=== PATIENT | male | born 1990 | race African-American/Black ===

== ENCOUNTER 2022-10-02 04:28 | Day surgery (SDC) | payer OTHER ==
[2022-09-28 15:38] VITALS: BMI 24.0
[2022-10-02] MEDS ORDERED: BACITRACIN ZINC 15 GM TUBE TOPICAL OINTMENT ONE (11:27)
[2022-10-02] MEDS ORDERED: LIDOCAINE HCL 1%, 10 MG/ML (20ML VIAL) ONE (11:27)
[2022-10-02] MEDS ORDERED: BUPIVACAINE HCL/PF 0.5% (5MG/ML) 10 ML VIAL ONE (11:28)
[2022-10-02] MEDS ORDERED: PROPOFOL 20 ML ONE (12:15)
[2022-10-02] MEDS ORDERED: MIDAZOLAM HCL 2 MG/2 ML SINGLE DOSE VIAL ONE (12:15)
[2022-10-02] MEDS ORDERED: DEXAMETHASONE SOD PHOSPHATE 4 MG/1 ML VIAL ONE (12:30)
[2022-10-02] MEDS ORDERED: ceFAZolin SODIUM 1 GM VIAL ONE (12:30)
[2022-10-02] MEDS ORDERED: ONDANSETRON 4 MG/2 ML VIAL ONE (12:30)
[2022-10-02] MEDS ORDERED: BUPIVACAINE HCL/PF 0.5% (5 MG/ML) 30 ML VIAL IJ ONE ×2 (12:31→12:35)
[2022-10-02] MEDS ORDERED: ceFAZolin SODIUM 1 GM VIAL IVPB ONE (12:31)
[2022-10-02] MEDS ORDERED: LIDOCAINE 1% P/F 10 MG/ML VIAL INF ONE ×2 (12:31→12:35)
[2022-10-02] MEDS ORDERED: ONDANSETRON 4 MG/2 ML VIAL IVPUSH PRN (13:17)
[2022-10-02] MEDS ORDERED: oxyCODONE HCL 5 MG TABLET PO PRN (13:17)
[2022-10-02] MEDS ORDERED: LACTATED RINGERS SOLUTION 1,000 ML IV SCH (13:30)
[2022-10-02 14:18] VITALS: RESP 18
[2022-10-02 14:46] VITALS: BP 153/78; PULSE 62; TEMP 97.3
== END 2022-10-02 15:11 | disposition home or self-care (01) ==
LOC: JASU-SURG 04:28
PROVIDERS: ATTEND Urology
PROC: 0VTTXZZ Resection of Prepuce, External Approach (ICD-10-PCS; principal; 2022-10-02 12:00)
DX: N47.1 Phimosis (principal)
CPT/HCPCS: 88304-TC; 94760

== ENCOUNTER 2024-01-19 18:07 | Emergency (ER) | payer OTHER ==
[2024-01-19 18:26] VITALS: PULSE 94; BMI 25.7
[2024-01-19 19:03] VITALS: BP 132/88; RESP 18; TEMP 98.5
== END 2024-01-19 20:03 | disposition home or self-care (01) ==
LOC: JER 18:07
DX: R05.1 Acute cough (principal); Z20.822 Contact with and (suspected) exposure to COVID-19
CPT/HCPCS: 0241U-QW; 99283-25

== ENCOUNTER 2024-01-31 06:37 | Inpatient (IN) | payer OTHER ==
[2024-01-31 07:01] VITALS: BMI 25.7
[2024-01-31] MEDS: ALBUTEROL SO4 2.5/IPRATROPIUM 0.5 INH SOL 3 ML VIAL.NEB. NEB SCH ×2 (07:01→07:35)
[2024-01-31] MEDS: SODIUM CHLORIDE 0.9% 500 ML INFUS.BAG IV ONE (07:34)
[2024-01-31] MEDS: ACETAMINOPHEN 1000 MG/100 ML BAG IVPB ONE (07:34)
[2024-01-31] MEDS ORDERED: ACETAMINOPHEN INJECTION 100 ML ONE (07:36)
[2024-01-31] MEDS ORDERED: ALBUTEROL SO4 2.5/IPRATROPIUM 0.5 INH SOL 3 ML VIAL.NEB. NEB ONE (07:36)
[2024-01-31 07:49] LABS: INR 1.67 (0.83-1.09); PROTHROMBIN TIME (PATIENT) 18.6 SEC (9.7-13.0)
[2024-01-31 07:50] LABS: BASO % 0.4 % (0-2.0); EOS % 0.8 % (0-4.5); HEMATOCRIT 34.7 % (35.4-49); LYMPH % 32.3 % (8-40); MCH 26.9 pg (25.7-33.7); MCHC 31.8 g/dl (32.0-35.9); MEAN CELL VOLUME 84.6 fl (80-96); MONO % 8.2 % (3.8-10.2); NEUT % 58.3 % (42.8-82.8); PLATELET COUNT 87 10^3/uL (134-434); RDW 13.9 % (11.9-15.9); WHITE BLOOD COUNT 7.6 K/mm3 (4.0-10.0)
[2024-01-31 07:52] LABS: ACTIVATED PTT 30.7 SECONDS (25.2-36.5)
[2024-01-31 07:59] LABS: CHLORIDE 106 mmol/L (98-107); POTASSIUM 3.8 mmol/L (3.5-5.1); SODIUM 136 mmol/L (136-145)
[2024-01-31 08:00] LABS: CALCIUM 8.5 mg/dL (8.5-10.1)
[2024-01-31 08:01] LABS: ALBUMIN 3.7 g/dl (3.4-5.0); ANION GAP 6 mmol/L (4-13); BLOOD UREA NITROGEN 8.3 mg/dL (7-18); CO2 24 mmol/L (21-32); GLUCOSE,RANDOM 104 mg/dL (74-106); MAGNESIUM 2.1 mg/dL (1.8-2.4)
[2024-01-31 08:04] LABS: CREATININE 0.9 mg/dL (0.55-1.3); SGOT/AST 31 U/L (15-37); SGPT/ALT 23 U/L (13-61)
[2024-01-31 08:05] LABS: BILIRUBIN,TOTAL 1.1 mg/dL (0.2-1)
[2024-01-31 08:06] LABS: TOT PROT 7.4 g/dl (6.4-8.2)
[2024-01-31 08:25] LABS: VENOUS BASE EXCESS -4.2 mmol/L (-2-2); VENOUS O2 SATURATION 97.2 % (70-80); VENOUS PCO2 35.3 mmHg (38-52); VENOUS PH 7.378 (7.310-7.410)
[2024-01-31] MEDS ORDERED: CEFTRIAXONE 1 G/50 ML PREMIX 50 ML IVPB ONE (08:53)
[2024-01-31] MEDS ORDERED: AZITHROMYCIN IVPB 500 MG/250 ML BAG IVPB ONE (08:53)
[2024-01-31] MEDS: AZITHROMYCIN IVPB 500 MG in DEXTROSE 5%-WATER - 250 ML IVPB ONE (08:58)
[2024-01-31 08:59] LABS: ALK PHOS > 2330 U/L (45-117)
[2024-01-31 10:36] LABS: BILIRUBIN,DIRECT 0.3 mg/dL (0.0-0.2)
[2024-01-31 10:37] LABS: PHOSPHOROUS 2.5 mg/dL (2.5-4.9)
[2024-01-31 11:19] LABS: PH,URINE 6.5 (5.0-8.0); URINE APPEARANCE CLEAR; URINE BILIRUBIN NEGATIVE (NEGATIVE); URINE COLOR DK YELLOW; URINE GLUCOSE (UA) NEGATIVE (NEGATIVE); URINE KETONE 1+ (NEGATIVE); URINE LEUK ESTERASE NEGATIVE (NEGATIVE); URINE NITRITE NEGATIVE (NEGATIVE); URINE PROTEIN TRACE (NEGATIVE); URINE UROBILINOGEN 4.0 E.U/dl mg/dL (0.2-1.0)
[2024-01-31 15:19] LABS: GAMMA GLUTAMYL TRANSPEPTIDASE 98 U/L (5-85)
[2024-01-31] MEDS ORDERED: ACETAMINOPHEN 325 MG TABLET (FP) PO PRN (15:19)
[2024-01-31 16:15] VITALS: RESP 18
[2024-01-31] MEDS: ACETAMINOPHEN 1000 MG/100 ML BAG IVPB PRN (22:54)
[2024-01-31] MEDS: guaiFENesin 600 MG TABLET.ER (FP) PO SCH (22:54)
[2024-01-31] MEDS: MELATONIN 5 MG TABLETS PO PRN (22:54)
[2024-01-31] MEDS: BENZONATATE 200 MG CAPSULE PO PRN (22:58)
[2024-01-31] MEDS: ALBUTEROL SO4 2.5/IPRATROPIUM 0.5 INH SOL 3 ML VIAL.NEB. NEB PRN (23:22)
[2024-02-01] MEDS: diphenhydrAMINE HCL 25 MG CAPSULE (FP) PO PRN (05:25)
[2024-02-01 06:29] VITALS: BP 133/85; PULSE 88; TEMP 98.1
[2024-02-01] MEDS: ENOXAPARIN NA (PORCINE) 40 MG/0.4 ML DISP.SYRIN SQ SCH (09:46)
[2024-02-01] MEDS: AZITHROMYCIN IVPB 250 MG in DEXTROSE 5%-WATER - 250 ML IVPB SCH (09:47)
[2024-02-01] MEDS: CEFTRIAXONE 1 G/50 ML PREMIX 50 ML IVPB SCH (09:47)
[2024-02-01 10:34] LABS: HEMATOCRIT 33.5 % (35.4-49); HEMOGLOBIN 10.9 GM/dL (11.7-16.9); MCHC 32.4 g/dl (32.0-35.9); MEAN CELL VOLUME 83.4 fl (80-96); MEAN PLT VOLUME 9.2 fl (7.5-11.1); PLATELET COUNT 88 10^3/uL (134-434); RBC 4.02 M/mm3 (4.00-5.60); RDW 14.1 % (11.9-15.9); WHITE BLOOD COUNT 6.9 K/mm3 (4.0-10.0)
[2024-02-01 10:37] LABS: INR 1.68 (0.83-1.09); PROTHROMBIN TIME (PATIENT) 18.7 SEC (9.7-13.0)
[2024-02-01 10:39] LABS: ACTIVATED PTT 29.4 SECONDS (25.2-36.5)
[2024-02-01 10:56] LABS: CHLORIDE 104 mmol/L (98-107); POTASSIUM 3.9 mmol/L (3.5-5.1); SODIUM 136 mmol/L (136-145)
[2024-02-01 10:58] LABS: ALBUMIN 3.6 g/dl (3.4-5.0); CALCIUM 8.9 mg/dL (8.5-10.1)
[2024-02-01 10:59] LABS: ANION GAP 10 mmol/L (4-13); BLOOD UREA NITROGEN 5.4 mg/dL (7-18); CO2 22 mmol/L (21-32); GAMMA GLUTAMYL TRANSPEPTIDASE 88 U/L (5-85); GLUCOSE,RANDOM 77 mg/dL (74-106)
[2024-02-01 11:02] LABS: CREATININE 0.7 mg/dL (0.55-1.3); SGOT/AST 27 U/L (15-37); SGPT/ALT 18 U/L (13-61)
[2024-02-01 11:03] LABS: BILIRUBIN,TOTAL 1.5 mg/dL (0.2-1); TOT PROT 7.3 g/dl (6.4-8.2)
[2024-02-01 11:19] LABS: ALK PHOS > 2330 U/L (45-117)
[2024-02-01 11:22] LABS: ANISOCYTOSIS 0; MACROCYTOSIS 0
[2024-02-01 15:38] LABS: BILIRUBIN,DIRECT 0.4 mg/dL (0.0-0.2)
[2024-02-01 15:44] LABS: LDH 239 U/L (87-246)
== END 2024-02-01 11:53 | disposition home or self-care (01) | DRG 139 ==
LOC: JER 06:37 → JERBED 08:35 → J5S 14:30
PROVIDERS: ADMIT Internal Medicine; ATTEND Internal Medicine
DX: J18.9 Pneumonia, unspecified organism (principal); K92.0 Hematemesis; R05.9 Cough, unspecified; R06.02 Shortness of breath; R53.81 Other malaise; R74.8 Abnormal levels of other serum enzymes
CPT/HCPCS: 0241U-QW; 36415; 71045-TC-FY; 76705-TC; 80053; 80076; 81003; 82248; 82803; 82977; 83010; 83605; 83615; 83735; 83970; 84100; 84439; 84443; 84484; 85025; 85045; 85379; 85384; 85610; 85730; 86038; 86850; 86900; 86901; 87040; 87086; 93005; 93010; 93306-TC; 94640; 99285-25; J0131